=== PATIENT | female | born 1990 | race American Indian/Alaskan Native ===

== ENCOUNTER 2018-06-10 09:18 | Emergency (ER) | payer OTHER ==
[2018-06-10 09:30] VITALS: BP 147/89
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
== END 2018-06-10 09:57 | disposition home or self-care (01) ==
LOC: ED 09:18
DX: R59.1 Generalized enlarged lymph nodes (principal)
CPT/HCPCS: 99282